=== PATIENT | female | born 1960 | race Caucasian/White ===

== ENCOUNTER 2017-05-09 18:01 | Emergency (ER) | payer OTHER ==
[~2017-05-09] VITALS: Ht 180.3 cm; Wt 156.0 kg
[~2017-05-09 18:01] MED LIST: Bactrim Ds Tab1 EACH PO; GUAI600T33; Keflex500 MG PO
[2017-05-09] MEDS ORDERED: DOCU100 PO (18:32)
[2017-05-09] MEDS ORDERED: CITA20 PO (18:32)
[2017-05-09] MEDS ORDERED: HYDCHL12.5 PO (18:33)
[2017-05-09] MEDS ORDERED: GABA300 PO (18:33)
[2017-05-09] MEDS ORDERED: INDO50 (18:33)
[2017-05-09] MEDS ORDERED: FAMO20 PO (18:33)
[2017-05-09] MEDS ORDERED: LEVSOD100 PO (18:34)
[2017-05-09] MEDS ORDERED: METF500C PO (18:34)
[2017-05-09] MEDS ORDERED: OXYC10ER (18:35)
[2017-05-09 19:01] LABS: BASOPHILS ABSOLUTE AUTO 0.02 K/mm3 (0.00-0.23); BASOPHILS PERCENT AUTO 0 % (0-2); EOSINOPHILS ABSOLUTE AUTO 0.24 K/mm3 (0.00-0.68); EOSINOPHILS PERCENT AUTO 2 % (0-6); Hematocrit 40.6 % (33.0-51.0); Hemoglobin 13.5 g/dL (11.5-16.0); IMMATURE GRAN ABSOLUTE AUTO 0.02 K/mm3 (0.00-0.10); IMMATURE GRAN PERCENT AUTO 0 % (0-1); LYMPHOCYTES ABSOLUTE AUTO 2.51 K/mm3 (0.84-5.20); LYMPHOCYTES PERCENT AUTO 19 % (21-46); MONOCYTES ABSOLUTE AUTO 0.86 K/mm3 (0.16-1.47); MONOCYTES PERCENT AUTO 7 % (4-13); Mean Corpuscular HGB 28.2 pg (26.0-34.0); Mean Corpuscular HGB Conc 33.3 g/dL (31.5-36.5); Mean Corpuscular Volume 85 fL (80-100); Mean Platelet Volume 10.4 fL (9.1-12.4); NEUTROPHILS ABSOLUTE AUTO 9.52 K/mm3 (1.96-9.15); NEUTROPHILS PERCENT AUTO 72 % (41-73); Platelet Count 280 K/mm3 (150-400); RDW Coefficient Variation 13.6 % (11.7-14.2); RDW Standard Deviation 42.1 fL (35.1-46.3); Red Blood Cell Count 4.78 M/mm3 (3.80-5.20); White Blood Cell Count 13.17 K/mm3 (4.00-11.30)
[2017-05-09 19:14] LABS: Alanine Aminotransfer (ALT/SGP 34 U/L (12-78); Albumin, Blood 3.7 g/dL (3.4-5.0); Albumin/Globulin Ratio 0.8 (0.8-1.8); Alk Phos 97 U/L (50-136); Anion Gap 8 mmol/L (6-16); Aspartate Aminotrans (AST/SGOT 21 U/L (12-37); Bilirubin, Total 0.2 mg/dL (0.1-1.0); Blood Urea Nitrogen 26 mg/dL (8-24); CO2, Blood 27 mmol/L (21-32); Calcium, Blood 9.6 mg/dL (8.5-10.1); Chloride, Blood 100 mmol/L (98-108); Creatinine, Blood 0.96 mg/dL (0.40-1.00); Globulin, Blood 4.5 g/dL (2.2-4.0); Glomerular Filtration Rate >60 (60-); Glucose, Blood 129 mg/dL (70-99); Potassium, Blood 4.2 mmol/L (3.5-5.5); Sodium, Blood 135 mmol/L (136-145); Total Protein, Blood 8.2 g/dL (6.4-8.2); Troponin I <0.015 ng/mL (0.000-0.040)
[2017-05-09] MEDS ORDERED: Cleocin HCl300 MG PO (20:05)
[2017-05-09] MEDS ORDERED: Norco 5-325 Ta1 EACH PO (20:07)
== END 2017-05-09 21:12 | disposition home or self-care (01) ==
LOC: ER 18:01
PROVIDERS: Emergency Medicine
DX: L03.114 Cellulitis of left upper limb (principal); I10 Essential (primary) hypertension; E11.9 Type 2 diabetes mellitus without complications; K21.9 Gastro-esophageal reflux disease without esophagitis; Z88.8 Allergy status to other drugs, medicaments and biological substances; Z79.899 Other long term (current) drug therapy; Z79.2 Long term (current) use of antibiotics; Z87.891 Personal history of nicotine dependence
CPT/HCPCS: 71046; 80053; 84484; 85025; 93005; 93010; 96365; 99284

== ENCOUNTER 2017-05-10 08:34 | Day surgery (SDC) | payer OTHER ==
[~2017-05-10 08:34] MED LIST changes: +CITA20 PO; +Cleocin HCl300 MG PO; +DOCU100 PO; +FAMO20 PO; +GABA300 PO; +HYDCHL12.5 PO; +INDO50; +LEVSOD100 PO; +METF500C PO; +Norco 5-325 Ta1 EACH PO; +OXYC10ER
[2017-05-11] MEDS ORDERED: CITA20 PO (11:20)
[2017-05-11] MEDS ORDERED: DICLOFENAC SOD150 ML TOP (11:22)
[2017-05-11] MEDS ORDERED: Colace100 MG PO (11:23)
[2017-05-11] MEDS ORDERED: Pepcid 20 mg Ta20 MG PO (11:24)
[2017-05-11] MEDS ORDERED: NAPR220 PO (11:28)
[2017-05-11] MEDS ORDERED: OXYC1TAB11 PO (11:29)
== END 2017-05-10 17:00 | disposition home or self-care (01) ==
LOC: ATC 08:34
DX: L03.114 Cellulitis of left upper limb (principal); E11.9 Type 2 diabetes mellitus without complications; K21.9 Gastro-esophageal reflux disease without esophagitis; I10 Essential (primary) hypertension; Z79.899 Other long term (current) drug therapy; Z79.84 Long term (current) use of oral hypoglycemic drugs; Z87.891 Personal history of nicotine dependence
CPT/HCPCS: 96365

== ENCOUNTER 2017-05-11 00:01 | Emergency (ER) | payer OTHER ==
[~2017-05-11] VITALS: Ht 180.3 cm; Wt 147.0 kg
[2017-05-11] MEDS ORDERED: CITA20 PO (11:20)
[2017-05-11] MEDS ORDERED: DICLOFENAC SOD150 ML TOP (11:22)
[2017-05-11] MEDS ORDERED: Colace100 MG PO (11:23)
[2017-05-11] MEDS ORDERED: Pepcid 20 mg Ta20 MG PO (11:24)
[2017-05-11] MEDS ORDERED: NAPR220 PO (11:28)
[2017-05-11] MEDS ORDERED: OXYC1TAB11 PO (11:29)
== END 2017-05-11 01:04 | disposition home or self-care (01) ==
LOC: ER 00:01
DX: L03.114 Cellulitis of left upper limb (principal); E03.9 Hypothyroidism, unspecified; E11.9 Type 2 diabetes mellitus without complications; K21.9 Gastro-esophageal reflux disease without esophagitis; I10 Essential (primary) hypertension; Z88.4 Allergy status to anesthetic agent; Z79.899 Other long term (current) drug therapy; Z79.84 Long term (current) use of oral hypoglycemic drugs; Z87.891 Personal history of nicotine dependence
CPT/HCPCS: 96374; 99282

== ENCOUNTER 2017-05-11 00:18 | Day surgery (SDC) | payer OTHER ==
[2017-05-11] MEDS ORDERED: CITA20 PO (11:20)
[2017-05-11] MEDS ORDERED: DICLOFENAC SOD150 ML TOP (11:22)
[2017-05-11] MEDS ORDERED: Colace100 MG PO (11:23)
[2017-05-11] MEDS ORDERED: Pepcid 20 mg Ta20 MG PO (11:24)
[2017-05-11] MEDS ORDERED: NAPR220 PO (11:28)
[2017-05-11] MEDS ORDERED: OXYC1TAB11 PO (11:29)
== END 2017-05-11 16:47 | disposition home or self-care (01) ==
LOC: ATC 00:18
DX: E11.628 Type 2 diabetes mellitus with other skin complications (principal); L03.114 Cellulitis of left upper limb; D72.829 Elevated white blood cell count, unspecified; Z87.891 Personal history of nicotine dependence; I10 Essential (primary) hypertension; K21.9 Gastro-esophageal reflux disease without esophagitis
CPT/HCPCS: 96365; 96375; J2405

== ENCOUNTER 2017-05-11 23:50 | Emergency (ER) | payer OTHER ==
[~2017-05-11] VITALS: Ht 180.3 cm; Wt 147.0 kg
[~2017-05-11 23:50] MED LIST changes: +Colace100 MG PO; +DICLOFENAC SOD150 ML TOP; +NAPR220 PO; +OXYC1TAB11 PO; +Pepcid 20 mg Ta20 MG PO
== END 2017-05-12 00:40 | disposition home or self-care (01) ==
LOC: ER 23:50
DX: Z76.89 Persons encountering health services in other specified circumstances (principal); Z88.8 Allergy status to other drugs, medicaments and biological substances; Z79.899 Other long term (current) drug therapy; Z79.84 Long term (current) use of oral hypoglycemic drugs; Z79.2 Long term (current) use of antibiotics; K21.9 Gastro-esophageal reflux disease without esophagitis; E11.9 Type 2 diabetes mellitus without complications; I10 Essential (primary) hypertension; E03.9 Hypothyroidism, unspecified; Z87.891 Personal history of nicotine dependence
CPT/HCPCS: 96365; 96375; 99282; J2405

== ENCOUNTER 2017-05-12 00:11 | Day surgery (SDC) | payer OTHER | END 2017-05-12 17:02 | disposition home or self-care (01) | LOC: ATC 00:11 | DX: L03.114 Cellulitis of left upper limb (principal); Z88.6 Allergy status to analgesic agent; Z79.899 Other long term (current) drug therapy; Z87.891 Personal history of nicotine dependence | CPT/HCPCS: 96365; 96375; 96376; J2405 ==

== ENCOUNTER 2017-05-12 23:36 | Emergency (ER) | payer OTHER ==
[~2017-05-12] VITALS: Ht 165.1 cm; Wt 136.1 kg
== END 2017-05-13 00:54 | disposition home or self-care (01) ==
LOC: ER 23:36
DX: L03.114 Cellulitis of left upper limb (principal); M79.661 Pain in right lower leg; Z79.899 Other long term (current) drug therapy; Z79.84 Long term (current) use of oral hypoglycemic drugs; Z87.891 Personal history of nicotine dependence
CPT/HCPCS: 93971; 96365; 99284